=== PATIENT | female | born 1945 | race Caucasian/White ===

== ENCOUNTER 2025-09-02 13:01 | Emergency (ER) | payer BC, OTHER ==
[~2025-09-02] VITALS: Ht 157.5 cm; Wt 75.0 kg
[2025-09-02 13:05] VITALS: O2SAT 97
[2025-09-02] MEDS: IBUPROFEN 400MG TABLET PO ONE (14:31)
[2025-09-02 16:44] LABS: BASOPHILS % 0.3 % (0.0-2.0); EOSINOPHILS % 0.6 % (0.0-5.0); HEMATOCRIT. 38.6 % (36.0-48.0); HEMOGLOBIN. 13.1 g/dL (12.0-16.0); LYMPHOCYTES % 11.5 % (20.0-50.0); MEAN PLATELET VOLUME 7.5 fl (7.4-10.4); MONOCYTES % 8.6 % (2.0-8.0); NEUTROPHILS % 79.0 % (40.0-76.0); PLATELET 256 x1000/uL (130-400); RED BLOOD CELL COUNT 4.19 mill/uL (4.2-5.4); RED CELL DISTRIBUTION WIDTH 13.7 % (11.6-14.6)
[2025-09-02 16:56] LABS: INR 0.9
[2025-09-02 16:58] LABS: CREATININE 0.5 mg/dL (0.6-1.0)
[2025-09-02 16:59] LABS: TROPONIN I HIGH SENSITIVITY < 4 ng/L (3.0-34); UREA NITROGEN BLOOD 17 mg/dL (9-23)
[2025-09-02 17:00] LABS: ASPARTATE AMINOTRANSFERASE 27 IU/L (<34)
[2025-09-02 17:01] LABS: BILIRUBIN DIRECT 0.2 mg/dL (<=3.0); BILIRUBIN TOTAL 0.8 mg/dL (0.1-1.0); PROTEIN TOTAL 6.1 g/dL (6.0-8.3)
[2025-09-02 19:51] LABS: TROPONIN I HIGH SENSITIVITY < 4 ng/L (3.0-34)
[2025-09-02 23:10] VITALS: TEMP 37.1
[2025-09-02 23:11] VITALS: TEMP 98.78
[2025-09-03] MEDS ORDERED: LIDOCAINE 5% PATCH TOP ONE
[2025-09-03] MEDS: MORPHINE SULFATE 4 MG/ML INJ (FOR IV/IM USE) IV ONE ×2 (00:02→06:13)
[2025-09-03] MEDS: LIDOCAINE 5% PATCH TOP NR (01:27)
[2025-09-03 06:04] VITALS: O2SAT 95
[2025-09-03 06:13] VITALS: BP 137/66; PULSE 80; RESP 24
== END 2025-09-03 06:30 | disposition short-term general hospital (02) ==
LOC: ER 13:01 → CMPBEDREQ 09-03 08:45
DX: S82.52XA Displaced fracture of medial malleolus of left tibia, initial encounter for closed fracture (principal); S22.43XA Multiple fractures of ribs, bilateral, initial encounter for closed fracture; S22.31XA Fracture of one rib, right side, initial encounter for closed fracture; E78.00 Pure hypercholesterolemia, unspecified; R51.9 Headache, unspecified; I10 Essential (primary) hypertension; Z86.12 Personal history of poliomyelitis; V89.2XXA Person injured in unspecified motor-vehicle accident, traffic, initial encounter; Y93.89 Activity, other specified; Y92.410 Unspecified street and highway as the place of occurrence of the external cause; Y99.9 Unspecified external cause status
CPT/HCPCS: 99291; 70450; 80076; 80048; 83690; 85025; 85610; 85730; 86850; 86900; 86901; 84484; 36415; 71045; 73610; 72125; 71250; 74176; 96374; 96376; J2270